=== PATIENT | male | born 1990 | race African-American/Black ===

== ENCOUNTER 2017-03-20 22:13 | Emergency (ER) | payer SELFPAY ==
[~2017-03-20] VITALS: Ht 183.5 cm; Wt 108.9 kg
[2017-03-20 22:14] VITALS: BP 110/62
--- NOTE | 2017-03-20 22:50 | Emergency Room Report ---
History of Present Illness General Chief Complaint: Behavioral Complaint Source: Patient Present Illness HPI Is a 27-year-old male who said he has a history of schizophrenia. Said his been taking his medication. Said that his hearing voices. This is unchanged before. No suicidal thoughts or homicidal thought. No fever or chills. No nausea no vomiting. Denies any alcohol or drugs. Allergies: Coded Allergies: No Known Allergies (Unverified , 03/20/17) Patient History Past Medical History: see triage record, old chart reviewed, psych hx Past Surgical History: none Pertinent Family History: none Social History: Denies: smoking Immunizations: other Reviewed Nursing Documentation: PMH: Agreed, PSxH: Agreed Nursing Documentation-PMH Past Medical History: No Stated History History Of Psychiatric Problem: Yes - schizophrenia Review of Systems Eye: Denies: eye pain, blurred vision ENT: Denies: ear pain, nose congestion, throat swelling Respiratory: Denies: cough, shortness of breath Cardiovascular: Denies: chest pain, palpitations Gastrointestinal: Denies: abdominal pain, diarrhea, nausea, vomiting Musculoskeletal: Denies: back pain, joint pain Skin: Denies: rash Neurological: Denies: headache, numbness Endocrine: Denies: increased thirst, increased urine Hematologic/Lymphatic: Denies: easy bruising All Other Systems: negative except mentioned in HPI Physical Exam Vital Signs Date Time Temp Pulse Resp B/P (MAP) Pulse Ox O2 Delivery O2 Flow Rate FiO2 03/20/17 21:58 98.2 88 110/62 03/20/17 22:14 18 100 Room Air vitals normal Sp02 EP Interpretation: reviewed, normal General Appearance: well appearing, no apparent distress, alert Head: normocephalic, atraumatic Eyes: bilateral eye PERRL, bilateral eye EOMI ENT: hearing grossly normal, normal pharynx Neck: full range of motion, supple, no meningismus Respiratory: chest non-tender, lungs clear, normal breath sounds Cardiovascular #1: regular rate, rhythm, no murmur Gastrointestinal: normal bowel sounds, non tender, no mass, no organomegaly, no bruit, non-distended Musculoskeletal: back normal, gait/station normal, normal range of motion Psychiatric: mood/affect normal, no suicidal/homicidal ideation Skin: warm/dry Medical Decision Making Diagnostic Impression: Primary Impression: Psychosis Qualified Codes: F23 - Brief psychotic disorder ER Course Patient present with psychosis. There is no change from prior. He claimed that he taken his medication. He looks very comfortable. First he asked for his food and place to sleep. Suspect this is more of him wanting to sleep. I will discharge him in the morning. No evidence of suicidal thoughts or homicidal thought. No criteria for 5150. Last Vital Signs Date Time Temp Pulse Resp B/P (MAP) Pulse Ox O2 Delivery O2 Flow Rate FiO2 03/20/17 22:14 98.2 88 18 110/62 100 Room Air Status: improved Disposition: HOME, SELF-CARE Condition: Stable Additional Instructions: Take your medication. Abstain from drugs and alcohol. Followup with mental health within a week. Return if symptom worsen. TORY CASILLAS M.D. Mar 20, 2017 22:50
[2017-03-21 01:00] VITALS: BP 115/68
[2017-03-21 03:20] VITALS: BP 119/77
[2017-03-21 05:18] VITALS: BP 127/84
== END 2017-03-21 05:21 | disposition home or self-care (01) ==
LOC: EDBD 22:13 → EMR 03-21 00:05
DX: F23 Brief psychotic disorder (principal); F20.9 Schizophrenia, unspecified
CPT/HCPCS: 99283

== ENCOUNTER → 2017-04-18 | Emergency (ER) | payer MEDICAID, OTHER ==
[~2017-04-18] VITALS: Ht 182.9 cm; Wt 108.9 kg
[~2017-04-18] MED LIST: ABILIFY2 MG ORAL
[2017-04-18 16:50] VITALS: BP 132/91
--- NOTE | 2017-04-18 21:37 | Emergency Room Report ---
History of Present Illness General Chief Complaint: Dizziness Source: Patient, EMS Present Illness HPI 27YOM with known schizophrenia BIBEMS for auditory hallucinations States one male voice stating repeatedly for him to "harm myself." Denies visual hallucinations Last used drugs last week, he states Denies other med problems Took Abilify this morning Denies ETOH Allergies: Coded Allergies: No Known Allergies (Unverified , 03/20/17) Patient History Past Medical History: schizophrenia Past Surgical History: none Family History: none Social History: drug use, single Immunizations: UTD Reviewed Nursing Documentation: PMH: Agreed, PSxH: Agreed Nursing Documentation-PMH Past Medical History: No History, Except For History Of Psychiatric Problem: Yes - bipolar Review of Systems All Other Systems: negative except mentioned in HPI Physical Exam Vital Signs Date Time Temp Pulse Resp B/P (MAP) Pulse Ox O2 Delivery O2 Flow Rate FiO2 04/18/17 16:22 97.3 106 16 150/104 98 Room Air Sp02 EP Interpretation: reviewed, normal General Appearance: alert/responsive, no apparent distress, GCS 15, non-toxic Head: normocephalic, atraumatic Eyes: normal eye exam, PERRL, EOMI ENT: normal ENT inspection, TMs + canals normal, hearing intact, nasal exam normal, no angioedema Neck: normal inspection, supple/symm/no masses, no meningismus Respiratory: normal inspection, effort normal, no rhonchi, no wheezing Cardiovascular: normal inspection, regular rate, rhythm, no murmur, gallop, rub , no edema Gastrointestinal: non-tender, no mass, non-distended, no rebound/guarding, normal bowel sounds Genitourinary: normal inspection Musculoskeletal: normal inspection Neurologic: CN II-XII intact, oriented x3 Psychiatric: normal inspection, judgment & insight normal, mood normal, no delusions Skin: no rash, well hydrated Lymphatic: normal inspection Medical Decision Making Diagnostic Impression: Primary Impression: Suicidal ideation Additional Impression: Methamphetamine abuse ER Course Utox+ for meth Continues to endorse SI on multiple exams Not on 5150 Dr Moya unable to see patient until tomorrow Agrees for voluntary psych Endorsed to Dr Ureña at 10pm to followup voluntary psych wrapper selector to facilitate Last Vital Signs Date Time Temp Pulse Resp B/P (MAP) Pulse Ox O2 Delivery O2 Flow Rate FiO2 04/18/17 16:50 97.6 93 16 132/91 98 Room Air Status: improved Condition: Improved Patient Instructions: Alcohol Intoxication, Wred-[id number] VIKTOR BARAJAS M.D. Apr 18, 2017 21:37
[2017-04-18 23:41] VITALS: BP 135/84
[2017-04-19 00:05] VITALS: BP 132/78
--- NOTE | 2017-04-19 04:38 | Emergency Room Report ---
Physical Exam Vital Signs Date Time Temp Pulse Resp B/P (MAP) Pulse Ox O2 Delivery O2 Flow Rate FiO2 04/18/17 16:22 97.3 106 16 150/104 98 Room Air Medical Decision Making Diagnostic Impression: Primary Impression: Methamphetamine abuse ER Course 27-year-old male presents to ED stating he is hearing voices telling him to hurt himself Patient signed out to me by Dr. Brooks; please see his note for full history and physical U. tox positive for amphetamines Patient belongs to [facility]; PET evaluation came to see the patient States that patient is a frequent flyer and is sometimes seen in hospitals 3 times a day. This particular info print press operator knows the patient very well. He did not believe the patient is a danger to himself. Patient does have a good social network. Does have his medications at home I agree with his assessment the patient be discharged. Patient agrees to plan diagnosis - methamphetamine abuse stable and discharged to home. f/up with PMD. return to ED if symptoms recur/ worsen Labs Test 04/18/17 17:35 Urine Opiates Screen Negative (NEGATIVE) Urine Barbiturates Screen Negative (NEGATIVE) Phencyclidine (PCP) Screen Negative (NEGATIVE) Urine Amphetamines Screen Positive (NEGATIVE) Urine Benzodiazepines Screen Negative (NEGATIVE) Urine Cocaine Screen Negative (NEGATIVE) Urine Marijuana (THC) Screen Negative (NEGATIVE) Last Vital Signs Date Time Temp Pulse Resp B/P (MAP) Pulse Ox O2 Delivery O2 Flow Rate FiO2 04/19/17 00:05 98.2 72 17 132/78 98 Room Air Status: improved Disposition: HOME, SELF-CARE Condition: Stable Referrals: [facility] (PCP) Patient Instructions: Stimulant Use Disorder-Methamphetamines CED MITTAL M.D. Apr 19, 2017 04:38
== END | disposition home or self-care (01) ==
LOC: EDUNIT# 16:21 → EDBD 16:44 → EMR 17:30
DX: R45.851 Suicidal ideations (principal); F15.10 Other stimulant abuse, uncomplicated; F31.9 Bipolar disorder, unspecified
CPT/HCPCS: 80300; 99282

== ENCOUNTER 2017-09-28 20:23 | Emergency (ER) | payer OTHER ==
[~2017-09-28] VITALS: Ht 188 cm; Wt 108.9 kg
[2017-09-28 20:50] VITALS: BP 140/87
[2017-09-28 23:05] VITALS: BP 138/84
[2017-09-29 01:05] VITALS: BP 132/88
[2017-09-29 02:51] LABS: BASOPHILS % (AUTO) 1.1 % (0.0-2.0); EOSINOPHILS % (AUTO) 3.8 % (0.0-3.0); HEMATOCRIT 40.5 % (42.0-52.0); LYMPHOCYTES % (AUTO) 37.7 % (20.0-45.0); MEAN CORPUSCULAR VOLUME 87 FL (80-99); MONOCYTES % (AUTO) 7.5 % (1.0-10.0); NEUTROPHILS % (AUTO) 49.8 % (45.0-75.0); PLATELET COUNT 231 K/UL (150-450); RED BLOOD COUNT 4.64 M/UL (4.70-6.10); RED CELL DISTRIBUTION WIDTH 11.1 % (11.6-14.8); WHITE BLOOD COUNT 7.4 K/UL (4.8-10.8)
[2017-09-29 02:57] LABS: APPEARANCE,URINE CLEAR; BILIRUBIN, URINE NEGATIVE (NEGATIVE); COLOR,URINE PALE YELLOW; GLUCOSE, URINE (UA) NEGATIVE (NEGATIVE); KETONES,URINE NEGATIVE (NEGATIVE); LEUKOCYTE ESTERASE ,URINE NEGATIVE (NEGATIVE); NITRITE,URINE NEGATIVE (NEGATIVE); PH,URINE 6 (4.5-8.0); PROTEIN,URINE NEGATIVE (NEGATIVE); UROBILINOGEN,URINE NORMAL MG/DL (0.0-1.0)
--- NOTE | 2017-09-29 02:59 | Emergency Room Report ---
History of Present Illness General Chief Complaint: Behavioral Complaint Source: Patient Present Illness HPI Is a 27-year-old male who is homeless. Also a history of schizophrenia supposed be on Abilify. Presents with chief complaint of hearing voices. He said his filled little bit worse. Now telling him to hurt himself and hurt other people. Denies any other complaint. City was admitted to a psychiatric facility last month. Denies any alcohol or drugs. Particular plan. Allergies: Coded Allergies: No Known Allergies (Unverified , 03/20/17) Patient History Past Medical History: see triage record, old chart reviewed, psych hx Past Surgical History: other Family History: none Social History: tobacco use Immunizations: other Reviewed Nursing Documentation: PMH: Agreed, PSxH: Agreed Review of Systems ENT: Denies: sore throat Cardiovascular: Denies: chest pain, palpitations Gastrointestinal/Abdominal: Denies: nausea, vomiting, diarrhea Musculoskeletal: Denies: back problems Skin: Denies: rash Neurological: Denies: CORNELL, seizures All Other Systems: negative except mentioned in HPI Physical Exam Vital Signs Date Time Temp Pulse Resp B/P (MAP) Pulse Ox O2 Delivery O2 Flow Rate FiO2 09/28/17 20:36 98.6 89 18 144/89 99 Room Air 98.6 vitals roman Sp02 EP Interpretation: reviewed, normal General Appearance: alert/responsive, no apparent distress, non-toxic Head: normocephalic, atraumatic Eyes: PERRL, EOMI ENT: oropharynx normal Neck: supple/symm/no masses Respiratory: effort normal, no rhonchi, no wheezing Cardiovascular: no murmur, gallop, rub Gastrointestinal: non-tender, no mass, non-distended, no rebound/guarding, normal bowel sounds Musculoskeletal: gait & station normal Neurologic: oriented x3, sensory intact, motor strength/tone normal Skin: no rash, normal palpation Medical Decision Making Diagnostic Impression: Primary Impression: Suicidal ideation Additional Impression: Behavioral disorder ER Course Patient presents with chief complaint of hearing voices. He expressed a suicidality homicidal thought. I suspect that his main issue here and he went to sleep. He did the same thing at [facility] twice in the last week. He came in saying the same thing and said he was better in the morning. He told me here that he wanted to sleep up to 6:00 in the morning. Denies any other complaint. He is calm and so no evidence of intoxication or drug abuse. This patient is a chronic risk of self injury due to poor impulse control, limited coping skills, and judgment intermittently impaired by intoxication. 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 Hospitalization would likely attenuate risk of self-harm only during prison period, without lasting risk reduction. Serious self-harm , while possible, would likely be inadvertent, and because of impulsivity, and foreseeable. For these reasons, I do not believe hospitalization would provide meaningful reduction in risk of self-harm. Lab Results Impression labs unremarkable Last Vital Signs Date Time Temp Pulse Resp B/P (MAP) Pulse Ox O2 Delivery O2 Flow Rate FiO2 09/28/17 20:50 98.2 89 17 140/87 99 Room Air 98.2 Status: improved Disposition: HOME, SELF-CARE Condition: Stable Referrals: [facility] (PCP) Patient Instructions: Self-Destructive Behavior Additional Instructions: Follow-up with [facility] in 2-3 days. Take your medication. Return if worse. TORY CASILLAS M.D. Sep 29, 2017 02:59
[2017-09-29 03:05] LABS: ANION GAP 2 mmol/L (5-15); BLOOD UREA NITROGEN 13 mg/dL (7-18); CALCIUM 8.5 MG/DL (8.5-10.1); CARBON DIOXIDE 32 MMOL/L (21-32); CHLORIDE 105 MMOL/L (98-107); POTASSIUM 3.4 MMOL/L (3.5-5.1); SODIUM 139 MMOL/L (136-145)
[2017-09-29 03:09] LABS: ALANINE AMINOTRANSFERASE 20 U/L (12-78); ALBUMIN 2.9 G/DL (3.4-5.0); ALBUMIN/GLOBULIN RATIO 0.9 (1.0-2.7); ALKALINE PHOSPHATASE 60 U/L (46-116); ASPARTATE AMINO TRANSFERASE 12 U/L (15-37); BILIRUBIN,TOTAL 0.5 MG/DL (0.2-1.0)
[2017-09-29 03:10] VITALS: BP 126/79
[2017-09-29 04:35] VITALS: BP 124/76
[2017-09-29 05:50] VITALS: BP 124/78
[2017-09-29 06:13] VITALS: BP 124/78
== END 2017-09-29 06:14 | disposition home or self-care (01) ==
LOC: EMR 21:30
DX: R45.851 Suicidal ideations (principal); F91.9 Conduct disorder, unspecified
CPT/HCPCS: 36415; 80053; 80307; 81003; 85025; 99283; G0480; 80329

== ENCOUNTER 2018-06-05 21:48 | Emergency (ER) | payer SELFPAY ==
[~2018-06-05] VITALS: Ht 182.9 cm; Wt 132.0 kg
[2018-06-05] MEDS ORDERED: LATUDA60 MG PO (22:11)
[2018-06-06 02:25] VITALS: BP 125/78
--- NOTE | 2018-06-06 03:32 | Emergency Room Report ---
History of Present Illness General Chief Complaint: Behavioral Complaint Source: Patient (Destiny Hernadez ) Present Illness HPI Patient presents with complaints of 'not feeling well' Patient reports that he was at [facility] 3 days ago at that time he had general weakness and auditory hallucinations He was discharged from the facility Today he reports after not feeling well he presented to the emergency room Denies any chest pain Denies any suicidal or homicidal thoughts Patient is unknown regarding any previous diagnoses does not recall his medication (Destiny Hernadez DO) Allergies: Coded Allergies: No Known Allergies (Unverified , 03/20/17) Patient History Past Medical History: see triage record Pertinent Family History: none Reviewed Nursing Documentation: PMH: Agreed; PSxH: Agreed (Destiny Hernadez DO) Nursing Documentation-PMH Past Medical History: No History, Except For History Of Psychiatric Problem: Yes (Destiny Hernadez DO) Review of Systems All Other Systems: negative except mentioned in HPI (Destiny Hernadez DO) Physical Exam Vital Signs Date Time Temp Pulse Resp B/P (MAP) Pulse Ox O2 Delivery O2 Flow Rate FiO2 06/05/18 22:07 98.2 108 18 142/84 97 Room Air Sp02 EP Interpretation: reviewed, normal General Appearance: well appearing, no apparent distress Head: normocephalic, atraumatic Eyes: bilateral eye PERRL, bilateral eye EOMI ENT: hearing grossly normal, normal pharynx, TMs + canals normal, uvula midline Neck: full range of motion, supple, no meningismus, no bony tend Respiratory: lungs clear, normal breath sounds, no rhonchi, no respiratory distress, no retraction, no accessory muscle use Cardiovascular #1: normal peripheral pulses, regular rate, rhythm, no edema, no gallop, no JVD, no murmur Gastrointestinal: normal bowel sounds, non tender, soft, no mass, no organomegaly, non-distended, no guarding, no hernia, no pulsatile mass, no rebound Genitourinary: no CVA tenderness Musculoskeletal: normal inspection Neurologic: oriented x3, responsive, music coordinator III-XII nml as tested, motor strength/ tone normal, sensory intact Psychiatric: mood/affect normal, no suicidal/homicidal ideation Skin: normal color, no rash, warm/dry, palpation normal Lymphatic: normal inspection, no adenopathy (Destiny Hernadez DO) Medical Decision Making Diagnostic Impression: Primary Impression: Weakness Additional Impression: Depression ER Course Patient has a fairly benign medical evaluation Given some of the previous questionable psychiatric history Given the recent reports of arthritic hallucination Patient is allowed to rest, pending psychiatric evaluation in the morning for further input and consultation. Patient continues to deny any active homicidal or suicidal thoughts, is not having any active hallucinations Labs Test 06/05/18 23:10 Urine Opiates Screen Negative (NEGATIVE) Urine Barbiturates Screen Negative (NEGATIVE) Phencyclidine (PCP) Screen Negative (NEGATIVE) Urine Amphetamines Screen Negative (NEGATIVE) Urine Benzodiazepines Screen Negative (NEGATIVE) Urine Cocaine Screen Negative (NEGATIVE) Urine Marijuana (THC) Screen Negative (NEGATIVE) (Destiny Hernadez DO) ER Course Patient was reevaluated this morning. He feels much better. Patient states that he does not want to see a psychiatrist at this time. Patient is denying suicidal or homicidal ideation. He denies any auditory or visual hallucinations. Given the patient is not on a psychiatric hold is not toxic medically cleared and not suicidal or homicidal I felt that it was appropriate to discharge the patient recommend outpatient follow-up with outpatient psychiatry.Patient is advised to follow up with primary doctor in 2-3 days and return the emergency room for any worsening symptoms and as needed. Labs Test 06/05/18 23:10 Urine Opiates Screen Negative (NEGATIVE) Urine Barbiturates Screen Negative (NEGATIVE) Phencyclidine (PCP) Screen Negative (NEGATIVE) Urine Amphetamines Screen Negative (NEGATIVE) Urine Benzodiazepines Screen Negative (NEGATIVE) Urine Cocaine Screen Negative (NEGATIVE) Urine Marijuana (THC) Screen Negative (NEGATIVE) (Song Keita MD) Last Vital Signs Date Time Temp Pulse Resp B/P (MAP) Pulse Ox O2 Delivery O2 Flow Rate FiO2 06/05/18 22:07 98.2 108 18 142/84 97 Room Air Status: improved (Destiny Hernadez DO) Status: improved (Song Keita MD) Disposition: HOME, SELF-CARE Condition: Stable Referrals: NOT APPLICABLE THIS PATIENT,RE (PCP) Destiny Hernadez DO Jun 06, 2018 03:32 Song Keita MD Jun 06, 2018 10:58
[2018-06-06 04:45] VITALS: BP 127/82
[2018-06-06 07:00] VITALS: BP 124/76
[2018-06-06 09:17] VITALS: BP 131/68
[2018-06-06 10:45] VITALS: BP 131/68
== END 2018-06-06 10:51 | disposition home or self-care (01) ==
LOC: EMR 06-06 00:34
DX: R53.1 Weakness (principal); F32.9 Major depressive disorder, single episode, unspecified
CPT/HCPCS: 80307; 99283

== ENCOUNTER → 2018-06-07 | Emergency (ER) | payer SELFPAY ==
[~2018-06-07] VITALS: Ht 182.9 cm; Wt 132.0 kg
[~2018-06-07] MED LIST changes: +LATUDA60 MG PO
[2018-06-07 14:23] LABS: BASOPHILS % (AUTO) 1.4 % (0.0-2.0); EOSINOPHILS % (AUTO) 1.5 % (0.0-3.0); HEMATOCRIT 42.8 % (42.0-52.0); LYMPHOCYTES % (AUTO) 26.4 % (20.0-45.0); MEAN CORPUSCULAR VOLUME 86 FL (80-99); MONOCYTES % (AUTO) 7.1 % (1.0-10.0); NEUTROPHILS % (AUTO) 63.5 % (45.0-75.0); PLATELET COUNT 251 K/UL (150-450); RED BLOOD COUNT 4.99 M/UL (4.70-6.10); RED CELL DISTRIBUTION WIDTH 10.9 % (11.6-14.8); WHITE BLOOD COUNT 9.6 K/UL (4.8-10.8)
[2018-06-07 14:30] VITALS: BP 135/86
[2018-06-07 14:39] LABS: ANION GAP 8 mmol/L (5-15); BLOOD UREA NITROGEN 15 mg/dL (7-18); CALCIUM 8.7 MG/DL (8.5-10.1); CARBON DIOXIDE 27 MMOL/L (21-32); CHLORIDE 105 MMOL/L (98-107); POTASSIUM 3.7 MMOL/L (3.5-5.1); SODIUM 140 MMOL/L (136-145)
[2018-06-07 14:44] LABS: ALANINE AMINOTRANSFERASE 29 U/L (12-78); ALBUMIN 3.5 G/DL (3.4-5.0); ALBUMIN/GLOBULIN RATIO 0.8 (1.0-2.7); ALKALINE PHOSPHATASE 82 U/L (46-116); ASPARTATE AMINO TRANSFERASE 21 U/L (15-37); BILIRUBIN,TOTAL 0.4 MG/DL (0.2-1.0)
[2018-06-07 17:57] VITALS: BP 133/85
[2018-06-07 19:10] VITALS: BP 128/78
[2018-06-07 21:00] VITALS: BP 134/80
--- NOTE | 2018-06-07 21:38 | Emergency Room Report ---
History of Present Illness General Chief Complaint: Behavioral Complaint Source: Patient Present Illness HPI 28-year-old male presents to the emergency department for increased suicidal ideation 3 days. Patient reports that he has been on what to do for approximately 2 months. She states that prior to starting with 2 day he was hospitalized after being placed on a hold. Patient states he does not have a regularly assigned psychiatrist that he sees on a regular basis. Patient states of the course of the last 3 days he has been having increasing auditory hallucinations giving him ideas to hurt himself. Patient denies previous suicide attempts he reports history of auditory hallucinations however. He denies was a drug use, smoking or alcohol use. Patient denies HI, manic symptoms or delusions. Reports hx of depression. Patient denies any physical/ medical complaints at this time. Denies CP, Palpitations, LOC, AMS, dizziness, Changes in Vision, Sensation, paresthesias, or a sudden severe headache. Denies open wounds or bleeding. Denies pain. Allergies: Coded Allergies: No Known Allergies (Unverified , 03/20/17) Patient History Past Medical History: see triage record, psych hx Past Surgical History: none Pertinent Family History: none Reviewed Nursing Documentation: PMH: Agreed; PSxH: Agreed Nursing Documentation-PMH History Of Psychiatric Problem: Yes - depression Review of Systems All Other Systems: negative except mentioned in HPI Physical Exam Vital Signs Date Time Temp Pulse Resp B/P (MAP) Pulse Ox O2 Delivery O2 Flow Rate FiO2 06/07/18 13:37 97.9 94 17 137/87 94 Room Air Sp02 EP Interpretation: reviewed, normal General Appearance: no apparent distress, alert, GCS 15, non-toxic Head: normocephalic, atraumatic Eyes: bilateral eye normal inspection, bilateral eye PERRL ENT: hearing grossly normal, normal voice Neck: full range of motion Respiratory: lungs clear, normal breath sounds, speaking full sentences Cardiovascular #1: regular rate, rhythm Gastrointestinal: normal bowel sounds, non tender, soft Musculoskeletal: back normal, gait/station normal, normal range of motion, non- tender Neurologic: alert, oriented x3, responsive, motor strength/tone normal, sensory intact, normal gait, speech normal, grossly normal Psychiatric: judgement/insight normal, no delusions, other - POSITIVE FOR SI, no distinct plan. Pt has flat affect. non-aggressive, normal though process, and normal memory. Skin: normal color, no rash, warm/dry, well hydrated, other - NO abrasions, scratches, lacerations or evidence of attempts. Medical Decision Making PA Attestation Dr. Sarkar is my supervising Physician whom patient management has been discussed with. Diagnostic Impression: Primary Impression: Behavioral disorder Additional Impressions: Suicidal ideation Auditory hallucinations ER Course 28-year-old male presents to the emergency department for increased suicidal ideation 3 days. Patient reports that he has been on what to do for approximately 2 months. She states that prior to starting with 2 day he was hospitalized after being placed on a hold. Patient states he does not have a regularly assigned psychiatrist that he sees on a regular basis. Patient states of the course of the last 3 days he has been having increasing auditory hallucinations giving him ideas to hurt himself. Patient denies previous suicide attempts he reports history of auditory hallucinations however. He denies was a drug use, smoking or alcohol use. Patient denies HI, manic symptoms or delusions. Reports hx of depression. Patient denies any physical/ medical complaints at this time. Denies CP, Palpitations, LOC, AMS, dizziness, Changes in Vision, Sensation, paresthesias, or a sudden severe headache. Denies open wounds or bleeding. Denies pain. Pt has flat affect. non-aggressive, normal though process, and normal memory. Ddx considered but are not limited to OD, SI/HI, psychosis, UTI, intoxication Vital signs: are WNL, pt. is afebrile H&PE are most consistent with behavioral/mental health issue ORDERS: -CBC, CMP: Unremarkable -UA: negative for infection see results attached. -UDS: Negative -Salicylates and Acetaminophen -WNL -Serum ETOH- No evidence of acute intoxication ED INTERVENTIONS: - none required at this time . DISPOSITION: patient is medically cleared and will be under ED observation awaiting psychiatric evaluation for final disposition. Labs Test 06/07/18 14:00 White Blood Count 9.6 K/UL (4.8-10.8) Red Blood Count 4.99 M/UL (4.70-6.10) Hemoglobin 14.0 G/DL (14.2-18.0) Hematocrit 42.8 % (42.0-52.0) Mean Corpuscular Volume 86 FL (80-99) Mean Corpuscular Hemoglobin 28.0 PG (27.0-31.0) Mean Corpuscular Hemoglobin Concent 32.7 G/DL (32.0-36.0) Red Cell Distribution Width 10.9 % (11.6-14.8) Platelet Count 251 K/UL (150-450) Mean Platelet Volume 7.6 FL (6.5-10.1) Neutrophils (%) (Auto) 63.5 % (45.0-75.0) Lymphocytes (%) (Auto) 26.4 % (20.0-45.0) Monocytes (%) (Auto) 7.1 % (1.0-10.0) Eosinophils (%) (Auto) 1.5 % (0.0-3.0) Basophils (%) (Auto) 1.4 % (0.0-2.0) Sodium Level 140 MMOL/L (136-145) Potassium Level 3.7 MMOL/L (3.5-5.1) Chloride Level 105 MMOL/L (98-107) Carbon Dioxide Level 27 MMOL/L (21-32) Anion Gap 8 mmol/L (5-15) Blood Urea Nitrogen 15 mg/dL (7-18) Creatinine 1.0 MG/DL (0.55-1.30) Estimat Glomerular Filtration Rate > 60 mL/min (>60) Glucose Level 88 MG/DL (74-106) Calcium Level 8.7 MG/DL (8.5-10.1) Total Bilirubin 0.4 MG/DL (0.2-1.0) Aspartate Amino Transf (AST/SGOT) 21 U/L (15-37) Alanine Aminotransferase (ALT/SGPT) 29 U/L (12-78) Alkaline Phosphatase 82 U/L (46-116) Total Protein 8.0 G/DL (6.4-8.2) Albumin 3.5 G/DL (3.4-5.0) Globulin 4.5 g/dL Albumin/Globulin Ratio 0.8 (1.0-2.7) Salicylates Level 0.5 ug/mL (2.8-20) Urine Opiates Screen Negative (NEGATIVE) Acetaminophen Level < 2 MCG/ML (10-30) Urine Barbiturates Screen Negative (NEGATIVE) Phencyclidine (PCP) Screen Negative (NEGATIVE) Urine Amphetamines Screen Negative (NEGATIVE) Urine Benzodiazepines Screen Negative (NEGATIVE) Urine Cocaine Screen Negative (NEGATIVE) Urine Marijuana (THC) Screen Negative (NEGATIVE) Serum Alcohol < 3 mg/dL Last Vital Signs Date Time Temp Pulse Resp B/P (MAP) Pulse Ox O2 Delivery O2 Flow Rate FiO2 06/07/18 17:57 97.9 89 17 133/85 98 Room Air Signed Out To: Dr. Casarez Referrals: NOT CHOSEN [facility]/,REFERRING (PCP) Blanca Lee Jun 07, 2018 21:38
[2018-06-07 23:13] VITALS: BP 129/69
[2018-06-08 04:34] VITALS: BP 128/89
[2018-06-08 06:42] VITALS: BP 134/89
[2018-06-08 06:43] VITALS: BP 128/89
== END | disposition home or self-care (01) ==
LOC: EMR 14:10
DX: F91.9 Conduct disorder, unspecified (principal); R45.851 Suicidal ideations; R44.0 Auditory hallucinations; F32.9 Major depressive disorder, single episode, unspecified
CPT/HCPCS: 36415; 80053; 80307; 85025; 99284; G0480; 80329

== ENCOUNTER 2018-06-10 16:58 | Emergency (ER) | payer SELFPAY ==
[~2018-06-10] VITALS: Ht 182.9 cm; Wt 131.5 kg
[2018-06-10 17:30] VITALS: BP 132/83
[2018-06-10] MEDS ORDERED: ZyPREXA Zydis 10mg tab ORAL ONE (18:15)
--- NOTE | 2018-06-10 19:11 | Emergency Room Report ---
History of Present Illness General Chief Complaint: Behavioral Complaint Source: Medical Record (Tom Ureña MD) Present Illness HPI 28-year-old male presents ED for evaluation. States that his hearing voices and wants to hurt himself. Has no plan. States his been argument with his family which are causing his symptoms. Denies alcohol or drug use. States that he used to take medication for his depression years ago but none at this time. No other aggravating relieving factors. No other associated symptoms (Tom Ureña MD) Allergies: Coded Allergies: No Known Allergies (Unverified , 03/20/17) Patient History Past Medical History: none Past Surgical History: none Pertinent Family History: none Social History: Denies: smoking, alcohol use, drug use Immunizations: UTD Reviewed Nursing Documentation: PMH: Agreed; PSxH: Agreed (Tom Ureña MD) Nursing Documentation-PMH Past Medical History: No History, Except For History Of Psychiatric Problem: Yes (Tom Ureña MD) Review of Systems All Other Systems: negative except mentioned in HPI (Tom Ureña MD) Physical Exam Vital Signs Date Time Temp Pulse Resp B/P (MAP) Pulse Ox O2 Delivery O2 Flow Rate FiO2 06/10/18 16:59 97.9 129 24 158/97 98 Room Air Sp02 EP Interpretation: reviewed, normal General Appearance: no apparent distress, alert, GCS 15, non-toxic Head: normocephalic, atraumatic Eyes: bilateral eye normal inspection, bilateral eye PERRL ENT: hearing grossly normal, normal pharynx, no angioedema, normal voice Neck: full range of motion, supple/symm/no masses Respiratory: chest non-tender, lungs clear, normal breath sounds, speaking full sentences Cardiovascular #1: regular rate, rhythm, no edema Cardiovascular #2: 2+ carotid (R), 2+ carotid (L), 2+ radial (R), 2+ radial (L) , 2+ dorsalis pedis (R), 2+ dorsalis pedis (L) Gastrointestinal: normal bowel sounds, non tender, soft, non-distended, no guarding, no rebound Rectal: deferred Genitourinary: normal inspection, no CVA tenderness Musculoskeletal: back normal, gait/station normal, normal range of motion, non- tender Neurologic: alert, oriented x3, responsive, motor strength/tone normal, sensory intact, speech normal Psychiatric: judgement/insight normal, memory normal, no suicidal/homicidal ideation, no delusions, depressed affect, anxious Reflexes: 3+ bicep (R), 3+ bicep (L), 3+ tricep (R), 3+ tricep (L), 3+ knee (R) , 3+ knee (L) Skin: normal color, no rash, warm/dry, well hydrated Lymphatic: no adenopathy (Tom Ureña MD) Medical Decision Making Diagnostic Impression: Primary Impression: Auditory hallucinations Additional Impressions: Methamphetamine abuse Suicidal ideation ER Course Patient signout to me. He came in with suicidal thoughts and homicidal thought. He was here recently and was sent to psychiatric facility. He was just discharged. Denies any other complaint. Labs unremarkable. Urine drug screen positive for methamphetamine. He still stating suicidal thoughts homicidal thought. He is medically cleared for psychiatric evaluation. (Jarret Casarez MD) Last Vital Signs Date Time Temp Pulse Resp B/P (MAP) Pulse Ox O2 Delivery O2 Flow Rate FiO2 06/10/18 17:30 100 24 Room Air 06/10/18 17:30 98.0 132/83 98 (Tom Ureña MD) Status: improved (Jarret Casarez MD) Disposition: XFER TO PSYCH HOSP/UNIT Condition: Stable Referrals: NOT CHOSEN IPA/,REFERRING (PCP) Tom Ureña MD Jun 10, 2018 19:11 Jarret Casarez MD Jun 11, 2018 00:15
[2018-06-10 19:19] VITALS: BP 125/71
[2018-06-10 19:21] LABS: BASOPHILS % (AUTO) 1.9 % (0.0-2.0); HEMATOCRIT 42.7 % (42.0-52.0); HEMOGLOBIN 14.8 G/DL (14.2-18.0); LYMPHOCYTES % (AUTO) 11.7 % (20.0-45.0); MEAN CORPUSCULAR VOLUME 85 FL (80-99); MONOCYTES % (AUTO) 3.9 % (1.0-10.0); NEUTROPHILS % (AUTO) 82.6 % (45.0-75.0); PLATELET COUNT 285 K/UL (150-450); RED BLOOD COUNT 5.05 M/UL (4.70-6.10); RED CELL DISTRIBUTION WIDTH 10.8 % (11.6-14.8); WHITE BLOOD COUNT 12.4 K/UL (4.8-10.8)
[2018-06-10 19:38] LABS: ANION GAP 12 mmol/L (5-15); BLOOD UREA NITROGEN 16 mg/dL (7-18); CALCIUM 9.5 MG/DL (8.5-10.1); CARBON DIOXIDE 23 MMOL/L (21-32); CHLORIDE 104 MMOL/L (98-107); POTASSIUM 4.4 MMOL/L (3.5-5.1); SODIUM 139 MMOL/L (136-145)
[2018-06-10 19:42] LABS: ALANINE AMINOTRANSFERASE 27 U/L (12-78); ALBUMIN 3.6 G/DL (3.4-5.0); ALBUMIN/GLOBULIN RATIO 0.8 (1.0-2.7); ALKALINE PHOSPHATASE 86 U/L (46-116); ASPARTATE AMINO TRANSFERASE 15 U/L (15-37); BILIRUBIN,TOTAL 0.3 MG/DL (0.2-1.0)
[2018-06-10 21:07] VITALS: BP 121/75
[2018-06-10 23:19] VITALS: BP 124/80
[2018-06-11 05:28] VITALS: BP 110/82
[2018-06-11 08:01] VITALS: BP 114/79
[2018-06-11 08:39] VITALS: BP 114/79
== END 2018-06-11 08:39 ==
LOC: EMR 17:33
DX: R44.0 Auditory hallucinations (principal); F15.10 Other stimulant abuse, uncomplicated; R45.851 Suicidal ideations; R45.850 Homicidal ideations
CPT/HCPCS: 36415; 80053; 80307; 85025; 99285; G0480; 80329

== ENCOUNTER 2018-06-24 10:37 | Emergency (ER) | payer SELFPAY ==
[2018-06-24] VITALS (7 sets, daily range): BP systolic 138–151; BP diastolic 78–89
[~2018-06-24] VITALS: Ht 182.9 cm; Wt 128.8 kg
[2018-06-24 12:11] LABS: BASOPHILS % (AUTO) 1.2 % (0.0-2.0); EOSINOPHILS % (AUTO) 2.9 % (0.0-3.0); HEMATOCRIT 42.4 % (42.0-52.0); LYMPHOCYTES % (AUTO) 30.3 % (20.0-45.0); MEAN CORPUSCULAR VOLUME 85 FL (80-99); MONOCYTES % (AUTO) 9.6 % (1.0-10.0); PLATELET COUNT 268 K/UL (150-450); RED BLOOD COUNT 4.98 M/UL (4.70-6.10); WHITE BLOOD COUNT 7.7 K/UL (4.8-10.8)
[2018-06-24 12:18] LABS: ANION GAP 7 mmol/L (5-15); BLOOD UREA NITROGEN 15 mg/dL (7-18); CALCIUM 8.6 MG/DL (8.5-10.1); CARBON DIOXIDE 29 MMOL/L (21-32); CHLORIDE 105 MMOL/L (98-107); CREATININE 1.1 MG/DL (0.55-1.30); POTASSIUM 3.9 MMOL/L (3.5-5.1); SODIUM 141 MMOL/L (136-145)
[2018-06-24 12:22] LABS: ALANINE AMINOTRANSFERASE 27 U/L (12-78); ALBUMIN 3.2 G/DL (3.4-5.0); ALBUMIN/GLOBULIN RATIO 0.8 (1.0-2.7); ALKALINE PHOSPHATASE 73 U/L (46-116); ASPARTATE AMINO TRANSFERASE 13 U/L (15-37); BILIRUBIN,TOTAL 0.2 MG/DL (0.2-1.0); CREATINE KINASE 110 U/L (26-308)
[2018-06-24 13:36] LABS: APPEARANCE,URINE CLEAR; BILIRUBIN, URINE NEGATIVE (NEGATIVE); COLOR,URINE PALE YELLOW; GLUCOSE, URINE (UA) NEGATIVE (NEGATIVE); KETONES,URINE NEGATIVE (NEGATIVE); LEUKOCYTE ESTERASE ,URINE NEGATIVE (NEGATIVE); NITRITE,URINE NEGATIVE (NEGATIVE); PH,URINE 7 (4.5-8.0); PROTEIN,URINE NEGATIVE (NEGATIVE); UROBILINOGEN,URINE NORMAL MG/DL (0.0-1.0)
--- NOTE | 2018-06-24 15:07 | Emergency Room Report ---
History of Present Illness General Chief Complaint: Behavioral Complaint Source: Patient Present Illness HPI Patient presents with suicidal ideation. He is taking Latuda and allegedly has not missed doses. He has a plan to cut his wrists. He has a knife at home. He denies doing any drugs. He's had difficulty sleeping but has been able to eat without trouble. The patient is a history of major depression and prior suicidal ideation. In addition, he previously reported auditory hallucinations. He denies these at this time. Recently, he was evaluated 06/06 and discharged to home. He returned 06/07 and was transferred for psychiatric observation. He returned again 06/10 and was transferred for psychiatric observation. He denies fevers, chills, headache, sore throat, cough, NVD, dysuria, joint pain , rashes, diabetes. Allergies: Coded Allergies: No Known Allergies (Unverified , 06/24/18) Patient History Past Medical History: see triage record Social History: Reports: smoking, alcohol use - in the past, drug use - meth in the past Social History Narrative lives at home - disabled Reviewed Nursing Documentation: PMH: Agreed; PSxH: Agreed Nursing Documentation-PMH Past Medical History: No History, Except For History Of Psychiatric Problem: Yes Review of Systems All Other Systems: negative except mentioned in HPI Physical Exam Vital Signs Date Time Temp Pulse Resp B/P (MAP) Pulse Ox O2 Delivery O2 Flow Rate FiO2 06/24/18 10:39 98.2 88 14 138/89 97 Room Air Sp02 EP Interpretation: reviewed, normal General Appearance: well appearing, no apparent distress, GCS 15 Head: normocephalic Eyes: bilateral eye normal inspection, bilateral eye PERRL, bilateral eye EOMI ENT: moist mucus membranes Neck: supple Respiratory: lungs clear, normal breath sounds Cardiovascular #1: regular rate, rhythm Cardiovascular #2: 2+ radial (R) Gastrointestinal: normal inspection, normal bowel sounds, non tender, no mass, non-distended, overweight Musculoskeletal: back normal, gait/station normal, normal range of motion Neurologic: alert, oriented x3, grossly normal Psychiatric: depressed affect Suicide Risk Assessment: Suicidal Ideation: Yes Had intent to initiate attempt: Yes Pt's plan for suicide attempt: Yes Has means to complete attempt: Yes Skin: normal inspection, warm/dry Medical Decision Making Diagnostic Impression: Primary Impression: Suicidal ideation Additional Impression: Schizoaffective disorder Qualified Codes: F25.1 - Schizoaffective disorder, depressive type ER Course Patient presents with suicidal ideation with a plan which he could carry out. Differential includes exacerbation of depression, drug abuse, electrolyte abnormality amongst others. The patient will be evaluated with labs. Clinically EKG and chest x-ray are not indicated at this time. In the past he tested positive for drugs but denies use of them at this time. He declines needing anything to help him calm down at this time. Labs are negative. The patient is medically cleared. Patient is voluntary at this time. Still declines medication and is cooperative. Still states suicidal. Signed out to Dr. Pineda. Awaiting re-evaluation, psychiatric evaluation or placement. Laboratory Tests Test 06/24/18 11:20 06/24/18 11:55 06/24/18 12:52 Urine Color Pale yellow Urine Appearance Clear Urine pH 7 (4.5-8.0) Urine Specific [place] 1.010 (1.005-1.035) Urine Protein Negative (NEGATIVE) Urine Glucose (UA) Negative (NEGATIVE) Urine Ketones Negative (NEGATIVE) Urine Blood Negative (NEGATIVE) Urine Nitrite Negative (NEGATIVE) Urine Bilirubin Negative (NEGATIVE) Urine Urobilinogen Normal MG/DL (0.0-1.0) Urine Leukocyte Esterase Negative (NEGATIVE) White Blood Count 7.7 K/UL (4.8-10.8) Red Blood Count 4.98 M/UL (4.70-6.10) Hemoglobin 14.0 G/DL (14.2-18.0) L Hematocrit 42.4 % (42.0-52.0) Mean Corpuscular Volume 85 FL (80-99) Mean Corpuscular Hemoglobin 28.0 PG (27.0-31.0) Mean Corpuscular Hemoglobin Concent 32.9 G/DL (32.0-36.0) Red Cell Distribution Width 11.0 % (11.6-14.8) L Platelet Count 268 K/UL (150-450) Mean Platelet Volume 7.1 FL (6.5-10.1) Neutrophils (%) (Auto) 56.0 % (45.0-75.0) Lymphocytes (%) (Auto) 30.3 % (20.0-45.0) Monocytes (%) (Auto) 9.6 % (1.0-10.0) Eosinophils (%) (Auto) 2.9 % (0.0-3.0) Basophils (%) (Auto) 1.2 % (0.0-2.0) Sodium Level 141 MMOL/L (136-145) Potassium Level 3.9 MMOL/L (3.5-5.1) Chloride Level 105 MMOL/L (98-107) Carbon Dioxide Level 29 MMOL/L (21-32) Anion Gap 7 mmol/L (5-15) Blood Urea Nitrogen 15 mg/dL (7-18) Creatinine 1.1 MG/DL (0.55-1.30) Estimate Glomerular Filtration Rate > 60 mL/min (>60) Glucose Level 93 MG/DL (74-106) Calcium Level 8.6 MG/DL (8.5-10.1) Total Bilirubin 0.2 MG/DL (0.2-1.0) Aspartate Amino Transferase (AST) 13 U/L (15-37) L Alanine Aminotransferase (ALT) 27 U/L (12-78) Alkaline Phosphatase 73 U/L (46-116) Total Creatine Kinase 110 U/L (26-308) Total Protein 7.2 G/DL (6.4-8.2) Albumin 3.2 G/DL (3.4-5.0) L Globulin 4.0 g/dL Albumin/Globulin Ratio 0.8 (1.0-2.7) L Salicylates Level 0.8 ug/mL (2.8-20) L Acetaminophen Level < 2 MCG/ML (10-30) L Serum Alcohol < 3 mg/dL Urine Opiates Screen Negative (NEGATIVE) Urine Barbiturates Screen Negative (NEGATIVE) Phencyclidine (PCP) Screen Negative (NEGATIVE) Urine Amphetamines Screen Negative (NEGATIVE) Urine Benzodiazepines Screen Negative (NEGATIVE) Urine Cocaine Screen Negative (NEGATIVE) Urine Marijuana (THC) Screen Negative (NEGATIVE) Last Vital Signs Date Time Temp Pulse Resp B/P (MAP) Pulse Ox O2 Delivery O2 Flow Rate FiO2 06/24/18 16:53 98.0 69 15 149/81 98 Room Air Status: unchanged Condition: Stable Referrals: NOT CHOSEN IPA/,REFERRING (PCP) Vignesh Roman MD Jun 24, 2018 15:07
[2018-06-25 01:00] VITALS: BP 151/78
[2018-06-25 03:00] VITALS: BP 135/78
--- NOTE | 2018-06-25 04:52 | Emergency Room Report ---
Physical Exam Vital Signs Date Time Temp Pulse Resp B/P (MAP) Pulse Ox O2 Delivery O2 Flow Rate FiO2 06/24/18 10:39 98.2 88 14 138/89 97 Room Air Medical Decision Making Diagnostic Impression: Primary Impression: Suicidal ideation Additional Impression: Schizoaffective disorder Qualified Codes: F25.1 - Schizoaffective disorder, depressive type ER Course During my shift the patient was mostly sleeping. He got up to use the bathroom. He ate a sandwich at some point during the shift. He has been either sleeping or cooperative. Exam: not responding to internal stimuli, no hallucinations. A: chronic psych d/o NOS P: d/c Emergency departments do not prescribe medications for chronic conditions. Here are some options: [facility], [facility], [facility], [facility], [facility]. Also for psychiatric care , mental health clinics: [facility], [facility], [facility]. [place] [id number] [facility]. [phone] The most success at staying sober is with a 12 step group/program such as AA ( Alcoholics Anonymous.) There are meetings all the time, you must look online or call http://[email or web address]/FLOR/AlejandrinawoodMtgs.[email or web address] [phone] Patient with history substance abuse, poor life choices. Not suicidal. No criteria for 5150. Patient ate without any problem here. Will give follow-up to mental health and drug rehabilitation centers. This patient is a chronic risk of self injury due to poor impulse control, limited coping skills, and judgment intermittently impaired by intoxication. 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 Hospitalization would likely attenuate risk of self-harm only during senior living period, without lasting risk reduction. Serious self-harm , while possible, would likely be inadvertent, and because of impulsivity, and foreseeable. For these reasons, I do not believe hospitalization would provide meaningful reduction in risk of self-harm. Last Vital Signs Date Time Temp Pulse Resp B/P (MAP) Pulse Ox O2 Delivery O2 Flow Rate FiO2 06/24/18 18:53 97.5 71 17 151/78 98 Room Air Condition: Stable Referrals: NOT CHOSEN IPA/,REFERRING (PCP) Abran Prieto M.D. Jun 25, 2018 04:51
[2018-06-25 05:52] VITALS: BP 151/78
[2018-06-25 06:07] VITALS: BP 151/78
== END 2018-06-25 06:05 | disposition home or self-care (01) ==
LOC: EMR 11:22
DX: R45.851 Suicidal ideations (principal); F25.1 Schizoaffective disorder, depressive type; F17.200 Nicotine dependence, unspecified, uncomplicated
CPT/HCPCS: 36415; 80053; 80307; 81003; 82550; 85025; 99284; G0480; 80329

== ENCOUNTER 2018-06-27 15:44 | Emergency (ER) | payer SELFPAY ==
[~2018-06-27] VITALS: Ht 182.9 cm; Wt 127.0 kg
[2018-06-27 16:26] VITALS: BP 131/84
[2018-06-27 16:46] LABS: BASOPHILS % (AUTO) 1.1 % (0.0-2.0); HEMATOCRIT 41.8 % (42.0-52.0); HEMOGLOBIN 14.2 G/DL (14.2-18.0); LYMPHOCYTES % (AUTO) 26.8 % (20.0-45.0); MEAN CORPUSCULAR VOLUME 85 FL (80-99); NEUTROPHILS % (AUTO) 65.1 % (45.0-75.0); PLATELET COUNT 283 K/UL (150-450); RED BLOOD COUNT 4.91 M/UL (4.70-6.10); RED CELL DISTRIBUTION WIDTH 11.2 % (11.6-14.8)
[2018-06-27 17:01] LABS: ANION GAP 10 mmol/L (5-15); BLOOD UREA NITROGEN 12 mg/dL (7-18); CALCIUM 8.9 MG/DL (8.5-10.1); CARBON DIOXIDE 24 MMOL/L (21-32); CHLORIDE 104 MMOL/L (98-107); CREATININE 1.1 MG/DL (0.55-1.30); POTASSIUM 3.8 MMOL/L (3.5-5.1); SODIUM 137 MMOL/L (136-145)
[2018-06-27 17:07] LABS: ALANINE AMINOTRANSFERASE 21 U/L (12-78); ALBUMIN 3.2 G/DL (3.4-5.0); ALBUMIN/GLOBULIN RATIO 0.7 (1.0-2.7); ALKALINE PHOSPHATASE 79 U/L (46-116); ASPARTATE AMINO TRANSFERASE 8 U/L (15-37); BILIRUBIN,TOTAL 0.2 MG/DL (0.2-1.0)
--- NOTE | 2018-06-27 18:22 | Emergency Room Report ---
History of Present Illness General Chief Complaint: Medication Refill Source: Patient Present Illness HPI Pt. presents to the ED c/o having hallucinations of "seeing stars" Pt. states he is taking Latuda. pt. states that " I am suicidal and my plan is to cut my wrists and I am unstable because I am having hallucinations" Pt. denies illicit drug or ETOH use. Pt. denies trauma, fall, fevers, chills, seizures or muscle cramps/rigidity. Pt. reports multiple previous psychiatric hospitalizations he is "unable to count" how many. Pt. denies previous attempts to acting out plans of suicide. Denies CP, Cough, Abdominal Pain, SOB, Swelling , Cramps/spasms, Urinary frequency or urgency. Pt. states he does not need refill of Latuda or abilify. Pt. states he has not taken Abilify today. Pt. has no other complaints at this time. Allergies: Coded Allergies: No Known Allergies (Unverified , 06/24/18) Patient History Past Medical History: see triage record Past Surgical History: none Pertinent Family History: none Reviewed Nursing Documentation: PMH: Agreed; PSxH: Agreed Nursing Documentation-PMH Past Medical History: No History, Except For Review of Systems All Other Systems: negative except mentioned in HPI Physical Exam Vital Signs Date Time Temp Pulse Resp B/P (MAP) Pulse Ox O2 Delivery O2 Flow Rate FiO2 06/27/18 15:52 98.2 117 14 131/84 96 06/27/18 16:26 Room Air Sp02 EP Interpretation: reviewed, normal General Appearance: no apparent distress, alert, GCS 15, non-toxic Head: normocephalic, atraumatic Eyes: bilateral eye normal inspection, bilateral eye PERRL ENT: hearing grossly normal, normal voice Neck: full range of motion Respiratory: lungs clear, normal breath sounds, speaking full sentences Cardiovascular #1: regular rate, rhythm, tachycardia - resolved upon re-eval. Gastrointestinal: normal bowel sounds, non tender, soft Musculoskeletal: back normal, gait/station normal, normal range of motion, non- tender Neurologic: alert, oriented x3, responsive, motor strength/tone normal, sensory intact, normal gait, speech normal, grossly normal Psychiatric: judgement/insight normal, memory normal, other - Pt. has flattened affect. he is very quick to answer and has what seems to be rehearsed answers and complaints. Skin: normal color, no rash, warm/dry, well hydrated, other - no evidence of previous cutting/ scars, no self-inflicted wounds, no rope de leon or bruises. Medical Decision Making PA Attestation Dr. gonzalez is my supervising Physician whom patient management has been discussed with. Diagnostic Impression: Primary Impression: Behavioral problems Additional Impression: Encounter for medical screening examination ER Course Pt. presents to the ED c/o having hallucinations of "seeing stars" Pt. states he is taking Latuda. pt. states that " I am suicidal and my plan is to cut my wrists and I am unstable because I am having hallucinations" Pt. denies illicit drug or ETOH use. Pt. denies trauma, fall, fevers, chills, seizures or muscle cramps/rigidity. Pt. reports multiple previous psychiatric hospitalizations he is "unable to count" how many. Pt. denies previous attempts to acting out plans of suicide. Denies CP, Cough, Abdominal Pain, SOB, Swelling , Cramps/spasms, Urinary frequency or urgency. Pt. states he does not need refill of Latuda or abilify. Pt. states he has not taken Abilify today. Pt. has no other complaints at this time. . Pt has flat affect.with a normal thought process. Pt. is not responding to internal stimuli, Pt. is not tearful. Ddx considered but are not limited to OD, SI/HI, psychosis, UTI, intoxication Vital signs: Initially tachycardic in triage, then normal for remaining portion of ED visit. pt. is afebrile H&PE are most consistent with behavioral/mental health issue ORDERS: -CBC, CMP: Unremarkable -UA: negative for infection/ unremarkable see results attached. -UDS: Positive for THC -Salicylates and Acetaminophen -WNL -Serum ETOH - No evidence of acute intoxication ED INTERVENTIONS: - Abilify PO - Zyprexa PO -Pt. given food and allowed to rest/sleep. Will have Observation here in the ED for now pending lab results. Very unusual way of stating his chief complaint. Pt. seemed to know what information I needed which would be part of the suicide assessment and he gave me answers without the need for me to ask. This is suspicious that he may be abusing the ED resource, or that he has a stable condition for which he regularly evaluated and subsequently d/c. Pt. knows we are not and [facility] facility as this has been explained to him in the past when he was boarded here. Pt. has been here multiple visits for the same complaints and same plan. Pt. has been discharged in the past and has not had any bad outcome thus far. Pt. also is aware that we are not a LPS facility and do not have an inpatient psychiatric unit as He has been here many times before and each time this has been explained to him. I have evaluated and managed this patient on prior visit. Pt. does not appear to be having a psychotic episode, not responding to internal stimuli. During initial HPI pt. asks to be moved to a bed and if we would order a food tray for him. I kept having to re-direct pt. to discuss his complaint and reasoning for ED visit. Pt. is appropriately dressed is eating a snack he brought. Pt. was also caught smoking in the bathroom after he asked if he could go outside for a smoke. Pt. given list again of psychiatric referrals. pt. continues to not follow his care plan. pt. has been transferred in the past which resulted in him returning again in a short period of time with the same complaints. He was cleared by a energy efficiency specialist before. Patient does not meet psychiatric hold criteria. given that this patient has visited the ED on multiple previous visits with the same complaint including details, Was discharged after period of observation and did not have a bad outcome. It is my judgement that patient did not have a bad outcome in the past and most likely will not again in the near future. On coming attending physician Dr. Casarez agreed after seeing the patient and receiving report. Pt. is to be d/c rather than signed out to on-coming physician. DISPOSITION: patient is medically cleared. Attempts to find placement for voluntary psychiatric management. ---PtAlberto BAZAN @ 9:24pm--- prior to receiving discharge and his paper work Labs Test 06/27/18 16:29 06/27/18 16:46 White Blood Count 8.0 K/UL (4.8-10.8) Red Blood Count 4.91 M/UL (4.70-6.10) Hemoglobin 14.2 G/DL (14.2-18.0) Hematocrit 41.8 % (42.0-52.0) Mean Corpuscular Volume 85 FL (80-99) Mean Corpuscular Hemoglobin 29.0 PG (27.0-31.0) Mean Corpuscular Hemoglobin Concent 34.1 G/DL (32.0-36.0) Red Cell Distribution Width 11.2 % (11.6-14.8) Platelet Count 283 K/UL (150-450) Mean Platelet Volume 7.4 FL (6.5-10.1) Neutrophils (%) (Auto) 65.1 % (45.0-75.0) Lymphocytes (%) (Auto) 26.8 % (20.0-45.0) Monocytes (%) (Auto) 5.0 % (1.0-10.0) Eosinophils (%) (Auto) 2.0 % (0.0-3.0) Basophils (%) (Auto) 1.1 % (0.0-2.0) Sodium Level 137 MMOL/L (136-145) Potassium Level 3.8 MMOL/L (3.5-5.1) Chloride Level 104 MMOL/L (98-107) Carbon Dioxide Level 24 MMOL/L (21-32) Anion Gap 10 mmol/L (5-15) Blood Urea Nitrogen 12 mg/dL (7-18) Creatinine 1.1 MG/DL (0.55-1.30) Estimat Glomerular Filtration Rate > 60 mL/min (>60) Glucose Level 139 MG/DL (74-106) Calcium Level 8.9 MG/DL (8.5-10.1) Total Bilirubin 0.2 MG/DL (0.2-1.0) Aspartate Amino Transf (AST/SGOT) 8 U/L (15-37) Alanine Aminotransferase (ALT/SGPT) 21 U/L (12-78) Alkaline Phosphatase 79 U/L (46-116) Total Protein 7.5 G/DL (6.4-8.2) Albumin 3.2 G/DL (3.4-5.0) Globulin 4.3 g/dL Albumin/Globulin Ratio 0.7 (1.0-2.7) Salicylates Level < 0.2 ug/mL (2.8-20) Acetaminophen Level < 2 MCG/ML (10-30) Serum Alcohol < 3 mg/dL Urine Opiates Screen Negative (NEGATIVE) Urine Barbiturates Screen Negative (NEGATIVE) Phencyclidine (PCP) Screen Negative (NEGATIVE) Urine Amphetamines Screen Negative (NEGATIVE) Urine Benzodiazepines Screen Negative (NEGATIVE) Urine Cocaine Screen Negative (NEGATIVE) Urine Marijuana (THC) Screen Positive (NEGATIVE) Last Vital Signs Date Time Temp Pulse Resp B/P (MAP) Pulse Ox O2 Delivery O2 Flow Rate FiO2 06/27/18 16:26 98.2 88 14 131/84 96 Room Air Disposition: ELOPED Condition: Improved Referrals: NOT CHOSEN IPA/,REFERRING (PCP) Blanca Lee Jun 27, 2018 18:22
[2018-06-27 18:39] VITALS: BP 125/85
[2018-06-27 21:27] VITALS: BP 118/72
== END 2018-06-27 21:15 | disposition left against medical advice (07) ==
LOC: EMR 16:25
DX: R44.3 Hallucinations, unspecified (principal); F91.9 Conduct disorder, unspecified; R45.851 Suicidal ideations
CPT/HCPCS: 36415; 80053; 80307; 85025; 99285; G0480; 80329

== ENCOUNTER 2018-06-30 08:41 | Emergency (ER) | payer MEDICAID ==
[~2018-06-30] VITALS: Ht 182.9 cm; Wt 127.0 kg
[2018-06-30 08:51] VITALS: BP 151/94
--- NOTE | 2018-06-30 09:33 | Emergency Room Report ---
History of Present Illness General Chief Complaint: Behavioral Complaint Source: Patient Present Illness [facility] Mr. Blanco is a 28 yo male with hx of depression who presents with "suicidal thoughts". He states that his "past mistakes" and "society" causes him to feel overwhelmed. He takes Latuda. NO Psychiatrist. He has a prescription from inpatient hospitalization at [facility]. NO PCP. Denies physical complaints or medical concerns. He lives alone. He is unemployed. He denies family support. He has financial support from his friends. Allergies: Coded Allergies: No Known Allergies (Unverified , 06/24/18) Patient History Past Medical History: none Past Surgical History: other - no recent surgeries Pertinent Family History: unable to obtain Social History: Reports: smoking; Denies: alcohol use, drug use Reviewed Nursing Documentation: PMH: Agreed; PSxH: Agreed Nursing Documentation-PMH Past Medical History: No History, Except For History Of Psychiatric Problem: Yes - depression Review of Systems Constitutional: Denies: fever, malaise Cardiovascular: Denies: chest pain Gastrointestinal: Denies: abdominal pain All Other Systems: negative except mentioned in HPI Physical Exam Vital Signs Date Time Temp Pulse Resp B/P (MAP) Pulse Ox O2 Delivery O2 Flow Rate FiO2 06/30/18 08:50 98.2 103 18 151/94 96 Room Air Sp02 EP Interpretation: reviewed, normal General Appearance: no apparent distress, alert, GCS 15, non-toxic Head: normocephalic, atraumatic Eyes: bilateral eye normal inspection ENT: hearing grossly normal, normal pharynx, no angioedema, normal voice Neck: full range of motion, supple, no meningismus, no bony tend, supple/symm/ no masses Respiratory: chest non-tender, lungs clear, normal breath sounds, no rhonchi, no respiratory distress, no retraction, no accessory muscle use, speaking full sentences Cardiovascular #1: regular rate, rhythm, no edema Gastrointestinal: normal bowel sounds, non tender, soft, non-distended, no guarding, no rebound Genitourinary: normal inspection, no CVA tenderness Musculoskeletal: back normal, gait/station normal, normal range of motion, non- tender, calf tenderness Neurologic: alert, oriented x3, responsive, motor strength/tone normal, sensory intact, speech normal Psychiatric: memory normal, depressed affect, other - poor insight Skin: normal color, no rash, warm/dry, well hydrated Medical Decision Making Diagnostic Impression: Primary Impression: Suicidal ideation Additional Impression: History of depression ER Course Mr. Blanco presnts to the emergency department for "suicidal thoughts". He did not have a specific plan. However when prompted he stated that he planned to cut his wrists. He states that he is overwhelmed by past mistakes and stresses of society. He desires new Medication. He does not have any acute condition which needs treatment or evaluation at this time. He is medically clear for psychiatric care. I have reviewed labs which are normal. Patient has been accepted to outside psychiatric facility. Labs Test 06/30/18 09:30 White Blood Count 8.2 K/UL (4.8-10.8) Red Blood Count 5.16 M/UL (4.70-6.10) Hemoglobin 14.4 G/DL (14.2-18.0) Hematocrit 44.2 % (42.0-52.0) Mean Corpuscular Volume 86 FL (80-99) Mean Corpuscular Hemoglobin 27.9 PG (27.0-31.0) Mean Corpuscular Hemoglobin Concent 32.7 G/DL (32.0-36.0) Red Cell Distribution Width 11.4 % (11.6-14.8) Platelet Count 272 K/UL (150-450) Mean Platelet Volume 6.8 FL (6.5-10.1) Neutrophils (%) (Auto) 66.4 % (45.0-75.0) Lymphocytes (%) (Auto) 22.9 % (20.0-45.0) Monocytes (%) (Auto) 8.2 % (1.0-10.0) Eosinophils (%) (Auto) 1.3 % (0.0-3.0) Basophils (%) (Auto) 1.3 % (0.0-2.0) Urine Color Pale yellow Urine Appearance Clear Urine pH 7 (4.5-8.0) Urine Specific Burke 1.010 (1.005-1.035) Urine Protein Negative (NEGATIVE) Urine Glucose (UA) Negative (NEGATIVE) Urine Ketones Negative (NEGATIVE) Urine Blood Negative (NEGATIVE) Urine Nitrite Negative (NEGATIVE) Urine Bilirubin Negative (NEGATIVE) Urine Urobilinogen Normal MG/DL (0.0-1.0) Urine Leukocyte Esterase Negative (NEGATIVE) Sodium Level 138 MMOL/L (136-145) Potassium Level 3.8 MMOL/L (3.5-5.1) Chloride Level 103 MMOL/L (98-107) Carbon Dioxide Level 24 MMOL/L (21-32) Anion Gap 11 mmol/L (5-15) Blood Urea Nitrogen 21 mg/dL (7-18) Creatinine 1.1 MG/DL (0.55-1.30) Estimat Glomerular Filtration Rate > 60 mL/min (>60) Glucose Level 114 MG/DL (74-106) Calcium Level 8.8 MG/DL (8.5-10.1) Total Bilirubin 0.2 MG/DL (0.2-1.0) Aspartate Amino Transf (AST/SGOT) 11 U/L (15-37) Alanine Aminotransferase (ALT/SGPT) 20 U/L (12-78) Alkaline Phosphatase 76 U/L (46-116) Total Protein 7.7 G/DL (6.4-8.2) Albumin 3.3 G/DL (3.4-5.0) Globulin 4.4 g/dL Albumin/Globulin Ratio 0.8 (1.0-2.7) Salicylates Level 1.4 ug/mL (2.8-20) Urine Opiates Screen Negative (NEGATIVE) Acetaminophen Level < 2 MCG/ML (10-30) Urine Barbiturates Screen Negative (NEGATIVE) Phencyclidine (PCP) Screen Negative (NEGATIVE) Urine Amphetamines Screen Negative (NEGATIVE) Urine Benzodiazepines Screen Negative (NEGATIVE) Urine Cocaine Screen Negative (NEGATIVE) Urine Marijuana (THC) Screen Negative (NEGATIVE) Serum Alcohol < 3 mg/dL Lab Results Impression Labs WNL Last Vital Signs Date Time Temp Pulse Resp B/P (MAP) Pulse Ox O2 Delivery O2 Flow Rate FiO2 06/30/18 08:50 98.2 103 18 151/94 96 Room Air Disposition: XFER TO PSYCH HOSP/UNIT Condition: Stable Referrals: NOT CHOSEN IPA/,REFERRING (PCP) Yasmin Mejía MD Jun 30, 2018 09:33
[2018-06-30 09:49] LABS: BASOPHILS % (AUTO) 1.3 % (0.0-2.0); EOSINOPHILS % (AUTO) 1.3 % (0.0-3.0); HEMATOCRIT 44.2 % (42.0-52.0); HEMOGLOBIN 14.4 G/DL (14.2-18.0); LYMPHOCYTES % (AUTO) 22.9 % (20.0-45.0); MEAN CORPUSCULAR VOLUME 86 FL (80-99); MONOCYTES % (AUTO) 8.2 % (1.0-10.0); NEUTROPHILS % (AUTO) 66.4 % (45.0-75.0); PLATELET COUNT 272 K/UL (150-450); RED BLOOD COUNT 5.16 M/UL (4.70-6.10); RED CELL DISTRIBUTION WIDTH 11.4 % (11.6-14.8); WHITE BLOOD COUNT 8.2 K/UL (4.8-10.8)
[2018-06-30 09:57] LABS: ANION GAP 11 mmol/L (5-15); BLOOD UREA NITROGEN 21 mg/dL (7-18); CALCIUM 8.8 MG/DL (8.5-10.1); CARBON DIOXIDE 24 MMOL/L (21-32); CHLORIDE 103 MMOL/L (98-107); CREATININE 1.1 MG/DL (0.55-1.30); POTASSIUM 3.8 MMOL/L (3.5-5.1); SODIUM 138 MMOL/L (136-145)
[2018-06-30 10:04] LABS: ALANINE AMINOTRANSFERASE 20 U/L (12-78); ALBUMIN 3.3 G/DL (3.4-5.0); ALBUMIN/GLOBULIN RATIO 0.8 (1.0-2.7); ALKALINE PHOSPHATASE 76 U/L (46-116); ASPARTATE AMINO TRANSFERASE 11 U/L (15-37); BILIRUBIN,TOTAL 0.2 MG/DL (0.2-1.0)
[2018-06-30 11:00] LABS: APPEARANCE,URINE CLEAR; BILIRUBIN, URINE NEGATIVE (NEGATIVE); COLOR,URINE PALE YELLOW; GLUCOSE, URINE (UA) NEGATIVE (NEGATIVE); KETONES,URINE NEGATIVE (NEGATIVE); LEUKOCYTE ESTERASE ,URINE NEGATIVE (NEGATIVE); NITRITE,URINE NEGATIVE (NEGATIVE); PH,URINE 7 (4.5-8.0); PROTEIN,URINE NEGATIVE (NEGATIVE); UROBILINOGEN,URINE NORMAL MG/DL (0.0-1.0)
[2018-06-30 12:53] VITALS: BP 120/77
[2018-06-30 13:32] VITALS: BP 120/77
== END 2018-06-30 13:58 ==
LOC: EMR 09:12
DX: R45.851 Suicidal ideations (principal); F32.9 Major depressive disorder, single episode, unspecified; F17.200 Nicotine dependence, unspecified, uncomplicated
CPT/HCPCS: 36415; 80053; 80307; 80329; 81003; 85025; 99285

== ENCOUNTER → 2018-07-10 | Emergency (ER) | payer MEDICAID ==
[~2018-07-10] VITALS: Ht 182.9 cm; Wt 127.0 kg
[2018-07-10 21:08] VITALS: BP 146/90
--- NOTE | 2018-07-11 00:39 | Emergency Room Report ---
History of Present Illness General Chief Complaint: Behavioral Complaint Source: Patient Present Illness Allergies: Coded Allergies: No Known Allergies (Unverified , 06/24/18) Nursing Documentation-H Past Medical History: No History, Except For History Of Psychiatric Problem: Yes - depression Physical Exam Vital Signs Date Time Temp Pulse Resp B/P (MAP) Pulse Ox O2 Delivery O2 Flow Rate FiO2 07/10/18 21:08 98.4 130 16 146/90 95 Room Air Medical Decision Making ER Course patient with prior to being seen Last Vital Signs Date Time Temp Pulse Resp B/P (MAP) Pulse Ox O2 Delivery O2 Flow Rate FiO2 07/10/18 21:08 98.4 130 16 146/90 95 Room Air Status: other Disposition: LEFT W/OUT BEING SEEN Condition: Unknown Destiny Hernadez DO Jul 11, 2018 00:39
== END | disposition left against medical advice (07) ==
LOC: EMR 21:30
DX: Z53.21 Procedure and treatment not carried out due to patient leaving prior to being seen by health care provider (principal)